=== PATIENT | female | born 1930 | race Caucasian/White ===

== ENCOUNTER 2017-06-23 08:37 | Inpatient (IN) | payer MEDICARE, BC ==
[~2017-06-23] VITALS: Ht 175.3 cm; Wt 83.9 kg
[~2017-06-23 08:37] MED LIST: AMBIEN10 MG PO; CELEXA20 MG PO; HYDROCHLOROTH12.5 M1 PO; K-DUR20 MEQ PO; NAPROSYN250 MG; NAPROSYN500 MG PO; NORVASC10 MG PO; NORVASC5 MG PO; OMEPRAZOLE20 M1 PO; PRILOSEC20 MG PO; SECTRAL400 MG PO; ULTRAM50 MG PO; ZESTRIL20 MG PO
[2017-06-23 08:59] LABS: BASOPHILS 0.3 % (0-2); EOSINOPHILS 2.7 % (0-7); HEMATOCRIT 39.7 % (36.0-48.0); HEMOGLOBIN 12.7 g/dL (12-16); IMMATURE GRANULOCYTES 0.5 % (0-5); LYMPHOCYTES 17.3 % (15-50); MCH 28.3 pg (26.0-34.0); MCV 88.6 fL (80.0-100.0); MONOCYTES 6.5 % (2-11); NEUTROPHILS 72.7 % (40-80); RBC 4.48 10x6/uL (4.00-5.40); RDW 14.5 % (11.5-14.5); WBC 8.6 10x3/uL (4.8-10.8)
[2017-06-23 09:02] LABS: PLATELET COUNT 177 10x3/uL (130-400)
[2017-06-23 09:10] LABS: APTT 24.9 SECONDS (22.8-39.4); INR 1.07 (0.85-1.17); PROTIME 13.7 SECONDS (11.6-15.0)
[2017-06-23 09:12] LABS: ALBUMIN 3.6 g/dL (3.4-5.0); ANION GAP 13.5 mmol/L (8-16); BILIRUBIN - TOTAL 0.67 mg/dL (0.2-1.3); CALCIUM 9.1 mg/dL (8.5-10.1); CARBON DIOXIDE 27.7 mmol/L (21.0-32.0); CREATININE - SERUM 0.9 mg/dL (0.6-1.3); POTASSIUM - SERUM 3.2 mmol/L (3.5-5.1); PROTEIN - SERUM 6.6 g/dL (6.4-8.2)
--- NOTE | 2017-06-23 12:00 | NUR ---
PT AOX4 RESP EVEN AND NONLABORED IV TO RIGHT HAND PATENT AND INTACT AT THIS TIME SRX2 BED AT LOWEST SETTING CALL LIGHT WITHIN REACH WILL CONTINUE TO MONITOR
[2017-06-23 12:49] VITALS: BP 181/77; BMI 27.3
[2017-06-23] MEDS ORDERED: LISINOPRIL-HCTZ1 T13 PO (13:40)
[2017-06-23] MEDS ORDERED: MELATONIN 3 MG1 TAB PO (13:43)
[2017-06-23] MEDS ORDERED: CARDURA1 MG PO (13:44)
[2017-06-23] MEDS ORDERED: NAPROSYN500 MG PO (13:45)
[2017-06-23 18:14] VITALS: BP 151/76
[2017-06-23 20:00] VITALS: BP 129/72
[2017-06-24] VITALS: BP 142/79
[2017-06-24 00:12] LABS: APPEARANCE HAZY (CLEAR); BACTERIA NONE SEEN /hpf (NONE SEEN); BILIRUBIN NEGATIVE (NEGATIVE); COLOR YELLOW (YELLOW); EPITHELIAL CELLS NSEEN /hpf (0-5); GLUCOSE NEGATIVE (NEGATIVE); GRANULAR CAST RARE /lpf (NONE SEEN); KETONE NEGATIVE (NEGATIVE); NITRITE NEGATIVE (NEGATIVE); PROTEIN TRACE mg/dL (NEGATIVE); RED CELLS - URINE 0-5 /hpf (0-5); SPECIFIC GRAVITY 1.015 (1.005-1.020); UROBILINOGEN NORMAL (NORMAL)
[2017-06-24 04:00] VITALS: BP 160/82
[2017-06-24 05:51] LABS: BASOPHILS 0.3 % (0-2); EOSINOPHILS 0.1 % (0-7); HEMATOCRIT 37.9 % (36.0-48.0); IMMATURE GRANULOCYTES 0.3 % (0-5); LYMPHOCYTES 14.7 % (15-50); MCH 28.2 pg (26.0-34.0); MCHC 31.7 g/dL (31.0-37.0); MCV 89.2 fL (80.0-100.0); MEAN PLATELET VOLUME 10.3 fL (7.4-10.4); MONOCYTES 6.2 % (2-11); NEUTROPHILS 78.4 % (40-80); RBC 4.25 10x6/uL (4.00-5.40); RDW 15.1 % (11.5-14.5)
[2017-06-24 05:52] LABS: PLATELET COUNT 215 10x3/uL (130-400); WBC 11.5 10x3/uL (4.8-10.8)
[2017-06-24 06:17] LABS: ALBUMIN 3.1 g/dL (3.4-5.0); ANION GAP 14.8 mmol/L (8-16); BILIRUBIN - TOTAL 0.7 mg/dL (0.2-1.3); CALCIUM 8.9 mg/dL (8.5-10.1); CARBON DIOXIDE 27.6 mmol/L (21.0-32.0); CREATININE - SERUM 1.1 mg/dL (0.6-1.3); POTASSIUM - SERUM 3.4 mmol/L (3.5-5.1); PROTEIN - SERUM 6.2 g/dL (6.4-8.2)
--- NOTE | 2017-06-24 07:59 | NUR ---
PT CONFUSED AT THIS TIME RESP EVEN AND NONLABORED AT THIS TIME IV TO RIGHT SIDE IN BED AT LOWEST SETTING CALL LIGHT WITHIN REACH WILL CONTINUE TO MONITOR
--- NOTE | 2017-06-24 08:05 | OP ---
PATIENT NAME: BRENT WARD MEDICAL RECORD: [id number] :31 LOCATION:[id number] ADMISSION DATE:06/23/17 SURGEON: SID SAL DO DATE OF OPERATION: 06/23/2017 PROCEDURE PERFORMED: Left jimbo hip arthroplasty. PREOPERATIVE DIAGNOSIS: Left femoral neck fracture, closed and displaced. POSTOPERATIVE DIAGNOSIS: Left femoral neck fracture, closed and displaced. INDICATIONS: Ms. Ward is an 86-year-old female who fell after getting out of the bed this morning on to her left side and fractured her left hip. She is not able to put weight on it. She does normally walk around with a walker but does not usually have any problems with hip pain. Had not had any antecedent hip pain; however, this was discussed with her and has decided to do a hemiarthroplasty do to her walking with a walker, not walking around a lot. The consents were obtained and she was aware of the risks and benefits of the procedure. DESCRIPTION OF THE PROCEDURE: After this was done, she was taken to the operative suite, laid in the supine position and given general anesthetic and intubated. A gram of Ancef given preoperatively. Timeout was performed, it was agreed the correct side, site, and the patient, and the left hip was prepped and draped in sterile fashion. Once this was done, the incision commenced of from the landmark of the ASIS 2 fingerbreadths distal and 2 fingerbreadths posterior to the ASIS. We started the incision obliquely along the tensor fascia norma muscle. Careful dissection was made down to the tensor fascia norma fascia. Once that was done, it was incised and from the muscle belly anteriorly and the muscle belly posteriorly. Adson Leeroy was used to open that interval. Once that was done, a careful dissection was made down to the rectus. The rectus fascia was opened and the Adson Leeroy was turned from a more vertical position to a more horizontal position and set off anterior, posterior, medial, and lateral. The vessels of the ascending branch of the lateral femoral circumflex were then encountered. Two veins and one artery and they were carefully dissected out and tied with 0 Vicryl on 2 sides and then the Aquamantys was used to coagulate that and the plasma knife was used to divide through it. Once this was done, the capsule was encountered. The fat pad out was taken off the capsule. Two 45-degree Hohmanns were used around the femoral neck and a capsulotomy was performed and the capsule was tagged. We then used a Charnley with the capsule in the posterior aspect and then underneath the muscle belly of the rectus just anterior to the acetabulum. Once this was achieved, trial was done and the 48 was seen to be the correct size of the head, then the femur was exposed, externally rotated, extended, and then adducted. Once a good exposure was done, broaching began after having a cookie cutter to open the canal and the canal finder. Broaching began in up to 2 of them at somewhat weird sizing was done and got the hip reduced. It seemed to be in somewhat of varus position. Trial was then removed. The cookie cutter was used to get more lateral on the femoral neck and the neck was cleaned out more with the saw. Once this was done due to her bone quality being very good and she had thick cortices down her femur, decided to press fit a #3 stem with a collar as the size and trialed and the appropriate lengths and everything were sized and seen to be very stable with any motion of the hip. We then inserted the collared stem #3 down to OPERATIVE REPORT [id number] BRENT WARD L approximately 1 mm off of the medial calcar and the head was placed onto the stem and the hip was reduced. Once this was done, x-rays were taken confirming good position and good stability. Internal and external rotations were seen with the movement of the small ball only on the big small, this was a dual mobility bipolar. After this was done, the wound was thoroughly irrigated and any extra bleeders were coagulated at that time and the capsule was closed with #1 Ethibond. The capsule was closed and then Trung was placed in the wound on top of that and the tensor fascia norma fascia was closed with 0 Vicryl, first with a couple of [id number] and then in a running locking stitch. Once this was done, extra Trung was placed between the skin and the skin was closed with 2-0 Vicryl in an inverted interrupted fashion and then Prineo was used on the skin and Prineo glue and Dermabond glue placed on the grid was used to close the skin. Once that had dried, a Telfa and Tegaderm were placed over the incision site. The patient was awakened and taken to the recovery in stable condition. Approximately 150 mL for blood loss. COMPLICATIONS: None. TRANSINT:[id number] Voice Confirmation ID: [id number] DOCUMENT ID: [id number] SID SAL DO at 0805 CC: [id number] DICTATION DATE: 06/23/171725 FILLER SIFTER HELPER: 06/23/172052 ADM IN [id number] [place] [address]
[2017-06-24 08:42] VITALS: BP 172/76
--- NOTE | 2017-06-24 10:18 | NUR ---
WYMAN DCD WITH CATH TIP INTACT.750CC OF CONCENTRATED URINE IN BAG.
--- NOTE | 2017-06-24 17:24 | NUR ---
PT TRYING TO GET OUT OF BED,VERY COMBATIVE.PAGE TO .
--- NOTE | 2017-06-24 17:42 | NUR ---
S/P LEFT PRASHANTH HIP ARTHROPLASTY FOR LEFT FEMORAL NECK FRACTURE POD #1 PATIENT IS VERY CONFUSED AND INCREASINGLY RESTLESS AND AGITATED TODAY.
[2017-06-24 20:00] VITALS: BP 151/86
--- NOTE | 2017-06-24 23:30 | NUR ---
PT AGITATED, PULLED OFF OXYGEN AND TRYING TO CLIMB OUT OF BED. GAVE ATIVAN 0.5 MG IM TO LEFT VENTROGLUTEAL. PADDED SPACE BETWEEN RAILS WITH PILLOW FOR SAFETY OF PATIENT. AFTER 25 MINUTES, PT STARTING TO CALM DOWN AND RELAX. BED ALARM ON. WILL MONITOR CLOSELY.
[2017-06-25] VITALS (9 sets, daily range): BP systolic 71–160; BP diastolic 40–80; Ht 175.3 cm; Wt 83.9 kg
--- NOTE | 2017-06-25 03:30 | NUR ---
PT HAS BEEN RESTING QUIETLY FOR A FEW HOURS NOW. RESP EVEN, UNLABORED. NO DISTRESS NOTED. WILL CONTINUE TO MONITOR CLOSELY.
--- NOTE | 2017-06-25 04:22 | NUR ---
TURNED AND CHANGED PADS THAT WERE WET. CHANGED DRESSING ON LEFT HIP TO MEPILEX BORDER DRESSING. PT FIGITING AND MOVING AROUND TOO MUCH. UNABLE TO GET BLOOD PRESSURE AT THIS TIME DUE TO PT WON'T BE STILL. PT RESTING NOW. WILL REASSESS AND MONITOR CLOSELY.
--- NOTE | 2017-06-25 05:50 | NUR ---
PT AGITATED/RESTLESS. TOOK OFF CLOTHES, OXYGEN AND SURGICAL DRESSING. LEGS OVER RAILS OF BED. GAVE ATIVAN 0.5 MG IM TO RIGHT VENTROGLUTEAL. CHANGED BED LINENS. APPLIED NEW DRESSING TO HIP. SCD'S ON. BED ALARM ON. CALL LIGHT IN REACH. PT RESTING QUIETLY NOW. RESP UNLABORED. WILL CONTINUE TO MONITOR.
[2017-06-25 05:58] LABS: BASOPHILS 0.3 % (0-2); EOSINOPHILS 0.4 % (0-7); HEMOGLOBIN 12.1 g/dL (12-16); IMMATURE GRANULOCYTES 0.3 % (0-5); LYMPHOCYTES 16.6 % (15-50); MCH 28.3 pg (26.0-34.0); MCHC 31.8 g/dL (31.0-37.0); MCV 88.8 fL (80.0-100.0); MEAN PLATELET VOLUME 10.3 fL (7.4-10.4); MONOCYTES 9.8 % (2-11); NEUTROPHILS 72.6 % (40-80); PLATELET COUNT 212 10x3/uL (130-400); RBC 4.28 10x6/uL (4.00-5.40); RDW 14.9 % (11.5-14.5)
[2017-06-25 06:07] LABS: WBC 15.7 10x3/uL (4.8-10.8)
[2017-06-25 06:32] LABS: ALBUMIN 3.1 g/dL (3.4-5.0); ANION GAP 14.9 mmol/L (8-16); BILIRUBIN - TOTAL 1.1 mg/dL (0.2-1.3); CARBON DIOXIDE 27.2 mmol/L (21.0-32.0); CREATININE - SERUM 0.8 mg/dL (0.6-1.3); POTASSIUM - SERUM 3.1 mmol/L (3.5-5.1); PROTEIN - SERUM 6.5 g/dL (6.4-8.2)
--- NOTE | 2017-06-25 07:33 | NUR ---
RESTING QUIETLY WITH EYES CLOSED. LUNGS ARE CLEAR BILATERALLY, NO COUGH NOTED. SKIN IS INTACT WITHOUT REDNESS EXCEPT INCISION TO LEFT HIP WHICH HAS A DRY INTACT DRESSING IN PLACE. SCD'S IN PLACE. NO NEEDS NOTED.
--- NOTE | 2017-06-25 09:19 | NUR ---
VERY AGITATED AT THIS TIEM. TAKING ALL HER CLOTHES OFF AND THROWING HER FOOD TRAY. LINENS CHANGED PER STAFF. GIVEN 0.5 MG ATIVAN IM. WILL MONITOR.
--- NOTE | 2017-06-25 12:30 | NUR ---
NEW ORDERS FOR CARDAZEM IVP RECEIVED. IV SITED TO RIGHT FOREARM AFTER ONE ATTEMPT WITH 20 GAUGE WITHOUT COMPLICATIONS. MED GIVEN PER ORDERS. REPOSITIONED IN BED FOR COMFORT. CONTINUES CONFUSED AND COMBATIVE AT TIME.
--- NOTE | 2017-06-25 13:45 | NUR ---
GIVEN 0.5 MG ATIVAN IM FOR CONTINUED ATTEPTS TO CLIMB OUT OF BED, THREATENING TO HIT OR KICK STAFF AND PULLING OFF CLOTHES. WILL MONITOR.
--- NOTE | 2017-06-25 15:11 | NUR ---
INCONTINENT OF URINE. SKIN CARE PER STAFF. LINENS CHANGED. FAMILY HERE. ALL QUESTIONS ANSWERED.
--- NOTE | 2017-06-25 17:06 | NUR ---
PATIENT FOUND TO BE UNRESPONSIVE. CODE CALLED PER STAFF. TRANSFERRED TO ICU VIA BED TO ROOM 2206. FAMILY HERE AND AWARE OF TRANSFER.
--- NOTE | 2017-06-25 17:49 | NUR ---
1649-REC'D PT TO ICU INTUBATED AND VENT SETTINGS BY RT. BP 53/30,NS BOLUS INFUSING, LEVOPHED STARTED AND BEGAN TITRATING FOR MAP OF 60. FAMILY REPORT TO [facility] STAFF TO MAKE PT A DNR. DR COOMBS HERE. DISCUSSED LEVOPHED WITH FAMILY AND FAMILY CHOSE TO STOP LEVOPHED. FAMILY WILL CONTINUE WITH INTUBATION AND REPORT THAT THEY WILL DISCUSS WEATHER TO WITH DRAWL OR NOT.
[2017-06-25 18:40] LABS: HEMATOCRIT 37.5 % (36.0-48.0); HEMOGLOBIN 11.8 g/dL (12-16); MCH 28.4 pg (26.0-34.0); MCHC 31.5 g/dL (31.0-37.0); MCV 90.4 fL (80.0-100.0); MEAN PLATELET VOLUME 10.7 fL (7.4-10.4); PLATELET COUNT 198 10x3/uL (130-400); RBC 4.15 10x6/uL (4.00-5.40); WBC 22.5 10x3/uL (4.8-10.8)
--- NOTE | 2017-06-25 18:45 | NUR ---
PAGED DR ARREAGA AND REPORTED TO HIM RE: FAMILY WISHED ABOUT TERMINAL EXTUBATION. FAMILY VERBILIZE READINESS AND VERB UNDERSTANDING OF TERMINAL EXTUBATION. MORPHINE AND ATIVAN GIVEN ORDERED.
[2017-06-25 18:51] LABS: ANION GAP 19.7 mmol/L (8-16); CALCIUM 8.6 mg/dL (8.5-10.1); CARBON DIOXIDE 22.6 mmol/L (21.0-32.0)
[2017-06-25 18:53] LABS: CREATININE - SERUM 1.1 mg/dL (0.6-1.3); POTASSIUM - SERUM 4.3 mmol/L (3.5-5.1)
--- NOTE | 2017-06-25 19:10 | NUR ---
PT TERMINALLY EXTUBATED AT THIS TIME, FAMILY AT BEDSIDE
[2017-06-25 19:17] LABS: EOSINOPHILS 3 % (0-7); LYMPHOCYTES 15 % (15-50); MONOCYTES 3 % (2-11); NEUTROPHILS 79 % (40-80); PLATELET ESTIMATE NORMAL
--- NOTE | 2017-06-25 21:00 | NUR ---
LG BM AT THIS TIME, PARTIAL LINEN CHANGE
--- NOTE | 2017-06-25 23:00 | NUR ---
FAMILY AT BEDSIDE, NO NEEDS NOTED
--- NOTE | 2017-06-26 01:20 | NUR ---
LG LIQUID BM AT THIS TIME, PARTIAL LINEN CHANGE
--- NOTE | 2017-06-26 03:00 | NUR ---
LG BM AT THIS TIME,
--- NOTE | 2017-06-26 05:11 | NUR ---
SPOKE WITH FAMILY ABOUT HOSPICE, "STATES THEY WILL DISCUSS IT"
[2017-06-26 07:00] VITALS: BP 88/29
--- NOTE | 2017-06-26 07:00 | NUR ---
PT REPORT REC'D, PT CARE ASSUMED. PT LETHARGIC, LABORED BREATHING, MORPHINE TO BE GIVEN ORDERED. VSS, 2LNC. RIGHT FOREARM PIV WITH NS KVO INFUSING, DRESSING CDI, NO SIGNS OF INFILTRATION. PT COOL TO TOUCH, COVERED WITH BLANKETS. NO FAMILY AT THE BEDSIDE UPON ASSESSMENT. INCISION NOTED TO LEFT HIP, NO DRAINAGE NOTED. WYMAN CATHETER FREE OF KINKS TO GRAVITY. SHIFT ASSESSMENT COMPLETED, SEE FLOW SHEET. ROOM FREE OF CLUTTER, BED LOCKED IN LOWEST POSITION, WILL CONTINUE TO MONITOR PT.
--- NOTE | 2017-06-26 07:20 | NUR ---
DR. SAL AT THE BEDSIDE, VERBAL ORDERS REC'D TO PUT STERI STRIPS ON PTS LEFT HIP INCISION.
[2017-06-26 08:00] VITALS: BP 68/43
--- NOTE | 2017-06-26 08:12 | NUR ---
PT LABORED BREATHING, WILL GIVE MORPHINE ORDERED.
--- NOTE | 2017-06-26 08:48 | NUR ---
PT FAMILY AT THE BEDSIDE, ALL QUESTIONS ANSWERED, PTS DAUGHTER WANTING [facility] CONSUKT, PTS SON WANTING A DOCTOR TO "LOOK AT HER (PT) BEFORE DOING CONSULT." PAGED DR. ARREAGA, AWAITING CALL BACK.
[2017-06-26 09:00] VITALS: BP 104/51
[2017-06-26 10:00] VITALS: BP 72/38
--- NOTE | 2017-06-26 10:00 | NUR ---
DR. CABEZAS AT THE BEDSIDE SPEAKING WITH PTS FAMILY.
--- NOTE | 2017-06-26 10:40 | NUR ---
DR. ARREAGA PRONOUNCED PT .
--- NOTE | 2017-06-26 10:44 | NUR ---
PT FAMILY AT THE BEDSIDE.
--- NOTE | 2017-06-26 10:49 | NUR ---
CONTACTED [facility], SPOKE WITH PATRICK RIVERA, PT IS RULED OUT DUE TO AGE, REFERENCE NUMBER [id number]
--- NOTE | 2017-06-26 10:50 | NUR ---
SPOKE WITH MARIMAR AT [facility] IN [facility] TO INFORM OF PTS , AND PTS FAMILY WISHES TO GO TO THIS HOME. "WILL SEND SOMEONE YOUR WAY."
--- NOTE | 2017-06-26 11:15 | NUR ---
PTS FAMILY LEAVING, TAKING PTS GLASSES, LEAVING LEFT HAND RING AND 2 STUD EARRINGS EACH EAR PER PTS FAMILY REQUEST.
--- NOTE | 2017-06-26 11:30 | NUR ---
DC'ED RIGHT FOREARM PIV, TIP INTACT, PRESSURE APPLIED, BANDAID APPLIED, 10CC REMOVED FROM WYMAN BALLOON, DC'ED WYMAN CATHETER. PT HAD BM, COMPLETE BED BATH AND LINEN CHANGE.
--- NOTE | 2017-06-26 12:05 | NUR ---
PT D/C'ED WITH KEESHA WILSON FROM [facility]. CONTACTED PTS SON, LARA GHOSH PER REQUEST, LEFT MESSAGE FOR PT FAMILY TO CALL BACK.
--- NOTE | 2017-06-27 11:38 | CN ---
PATIENT NAME:BRENT WARD MEDICAL RECORD: [id number] : 31 LOCATION:[facility]2306 ADMIT DATE: 06/23/17 ACCOUNT: [id number] CONSULTING PHYSICIAN: RAISA COOMBS MD REFERRING PHYSICIAN: ANN AJ MD DATE OF CONSULTATION: 06/25/2017 CONSULT REQUESTING PHYSICIAN: Dr. Arreaga. REASON FOR CONSULTATION: Status post code blue, respiratory failure, and mechanical ventilation management. HISTORY OF PRESENT ILLNESS: Ms. Ward is an 86-year-old female. She was recently admitted for the left hip fracture. She underwent ORIF earlier this afternoon, the patient was going into Vtach torsades and a code blue was called. The patient was resuscitated, intubated, and rhythm came back and the patient was transferred to the ICU. Now, the patient is orally intubated and unresponsive. The history was taken by reviewing the patient's note and talking to the nursing staff. REVIEW OF SYSTEMS: As in the history of present illness. PAST MEDICAL HISTORY: Hypertension. PAST SURGICAL HISTORY: She had a back surgery in 2010 and now status post left ORIF. ALLERGIES: SHE IS ALLERGIC TO SULFA AND TIZANIDINE. MEDICATIONS: In [employer] is reviewed. PERSONAL AND SOCIAL HISTORY: The patient is a nonsmoker, nondrinker. FAMILY HISTORY: Noncontributory. PHYSICAL EXAMINATION: GENERAL: The patient is orally intubated and unresponsive. VITAL SIGNS: Now, the patient is on mechanical ventilation, pulse is 83, respiration is 20, blood pressure is 120/74, and pulse ox 93%. HEENT: Conjunctivae are pink. Sclerae are not icteric. The pupils are fixed, nonreactive. NECK: Supple, no JVD. CHEST: There is no wheeze, no rales. HEART: Rate and rhythm regular, normal sound, no murmur. ABDOMEN: Soft. There are no bowel sounds. RECTAL: Deferred. EXTREMITIES: No cyanosis, no clubbing. There is 1+ pedal edema. LABORATORY DATA: Chest x-ray this morning. The cardiac size is normal. There are no consolidation, no masses, no atelectasis. IMPRESSION: 1. Cardiopulmonary arrest. 2. Respiratory failure secondary to cardiopulmonary arrest. 3. Mental status changes secondary to cardiopulmonary arrest. CONSULT REPORT [id number] BRENT WARD 4. Leukocytosis. 5. Hypertension. 6. Left hip fracture, status post open reduction and internal fixation. RECOMMENDATIONS: 1. We will continue mechanical ventilation at this point. 2. Levophed for hypotension. The patient was supposed to be DNR, spoke with the family and they do not want any heroics. The family is getting together and they are thinking to withdraw the support. I discussed with RN and RT. The critical care time is 50 minutes. TRANSINT:[id number] Voice Confirmation ID: [id number] DOCUMENT ID: [id number] RAISA COOMBS MD at 1138 CC: ZACH ARREAGA MD [id number] DICTATION DATE: 06/25/17 174 MEDICAID BILLER: 06/26/17 0033 DIS IN 06/26/17 [facility] [address] [place] [address]
--- NOTE | 2017-07-02 16:04 | NUR ---
Per CMS protocol, restraint report logged into data base.
--- NOTE | 2017-07-10 12:14 | CN ---
PATIENT NAME:BRENT WARD MEDICAL RECORD: [id number] : 31 LOCATION:[facility].2306 ADMIT DATE: 06/23/17 ACCOUNT: [id number] CONSULTING PHYSICIAN: JOSEFINA DIAZ MD REFERRING PHYSICIAN: ANN AJ MD DATE OF CONSULTATION: 06/25/2017 DIAGNOSES: 1. Atrial fibrillation with rapid ventricular response. 2. Hypertension. 3. Postop surgery, hip fracture. HISTORY OF PRESENT ILLNESS: Mrs. Wadr presented after a fall with hip fracture, underwent an operative repair of this today. She went into atrial fibrillation with rapid ventricular response. Preoperatively, she was in sinus rhythm. She does not feel palpitations. No chest pain or chest discomfort. PHYSICAL EXAMINATION: VITAL SIGNS: Heart rate is 148, atrial flutter, 2:1 block. GENERAL APPEARANCE: Well-nourished, well-developed, appears stated age. Level of distress, comfortable. PSYCHIATRIC: Mental status, alert, normal affect. Orientation, oriented to time, place and person. EYES: Lids and conjunctiva, noninjected. No discharge, no pallor. ENT: Lips, teeth, gums, normal dentition. Oropharynx, no cyanosis, no pallor. NECK: Carotid arteries, bilateral normal upstroke, no bruits, no thrills. JUGULAR VEINS: No jugular venous pressure or distention. CERVICAL LYMPH NODES: Nontender, nonenlarged. THYROID: Not enlarged. Nontender. No nodules. LUNGS: Respiratory effort, unlabored. CHEST: Normal curvature. No thoracic deformity. No chest wall tenderness. Percussion, resonant. Auscultation, clear. No wheezes, no rales, no rhonchi. CARDIOVASCULAR: Precordial exam, nondisplaced. No heaves or pericardial thrills. Rate and rhythm, regular. Heart sounds, normal S1, normal S2. No S3, no gallop, no rub. Systolic murmur, not heard. Diastolic murmur, not heard. EXTREMITIES: No cyanosis, no edema. Peripheral pulses, full and equal in all extremities, except as noted. No bruits appreciated. ABDOMEN: Soft, nondistended. Normal aorta. No bruit. Nontender. No masses. Liver, nontender, no hepatomegaly. Spleen, nontender, no splenomegaly. MUSCULOSKELETAL: No joint tenderness. No joint swelling. No erythema. NEUROLOGICAL: Normal gait, normal strength, normal tone. SKIN: Warm and dry. OVERALL IMPRESSION: Atrial flutter, 2:1 atrial fibrillation. We will start her on p.o. sotalol. Hopefully, this will slow her and convert her. If not, we can use IV Cardizem as well. TRANSINT:[id number] Voice Confirmation ID: [id number] DOCUMENT ID: [id number] CONSULT REPORT [id number] BRENT WARD, JOSEFINA GRIFFIN at 1214 CC: [id number] DICTATION DATE: 06/25/17 1158 SKI PATROL: 06/25/17 1252 DIS IN 06/26/17 [facility] [address] [place] [address]
== END 2017-06-26 10:40 | DRG 469 ==
LOC: D.ER 08:37 → D.MS 10:36 → D.ICU 10:36
PROVIDERS: Family Medicine; Internal Medicine Pulmonary Disease; Orthopaedic Surgery; ADMIT Family Medicine Adult Medicine
PROC: 0SRS0JZ Replacement of Left Hip Joint, Femoral Surface with Synthetic Substitute, Open Approach (ICD-10-PCS; principal; 2017-06-23 13:00)
PROC: 5A12012 Performance of Cardiac Output, Single, Manual (ICD-10-PCS; 2017-06-25)
PROC: 0BH17EZ Insertion of Endotracheal Airway into Trachea, Via Natural or Artificial Opening (ICD-10-PCS; 2017-06-25)
PROC: 5A1935Z Respiratory Ventilation, Less than 24 Consecutive Hours (ICD-10-PCS; 2017-06-25)
PROC: 0T9B70Z Drainage of Bladder with Drainage Device, Via Natural or Artificial Opening (ICD-10-PCS; 2017-06-25)
DX: S72.002A Fracture of unspecified part of neck of left femur, initial encounter for closed fracture (principal); J96.90 Respiratory failure, unspecified, unspecified whether with hypoxia or hypercapnia; G93.41 Metabolic encephalopathy; I48.92 Unspecified atrial flutter; I47.2 Ventricular tachycardia; I46.9 Cardiac arrest, cause unspecified; W06.XXXA Fall from bed, initial encounter; I10 Essential (primary) hypertension; I48.91 Unspecified atrial fibrillation; Z66 Do not resuscitate; Z87.891 Personal history of nicotine dependence